=== PATIENT | male | born 1965 | race Caucasian/White ===

== ENCOUNTER 2022-11-19 07:41 | Outpatient (CLI) | payer BC, SELFPAY ==
[2022-11-19 10:54] LABS: Albumin* 4.4 g/dL (3.3-5.0); Chloride* 106 mmol/L (96-114); Potassium* 4.6 mmol/L (3.6-5.1); Sodium* 142 mmol/L (135-149)
[2022-11-19 10:56] LABS: Cholesterol* 216 mg/dL (90-199)
[2022-11-19 10:57] LABS: Alanine Aminotransferase* 30 U/L (4-50); Alkaline Phosphatase* 84 U/L (40-150); Aspartate Amino Transferase* 30 U/L (12-35); Bilirubin Total* 0.5 mg/dL (0.1-1.5); Blood Urea Nitrogen* 7 mg/dL (7-30); Carbon Dioxide* 31 mmol/L (20-32); Creatinine* 0.7 mg/dL (0.5-1.5); Estimated Glomerular Filt Rate 106 ml/min; Total Protein* 7.8 g/dL (6.0-8.3); Triglycerides* 130 mg/dL (40-149)
[2022-11-19 10:58] LABS: Calcium* 9.2 mg/dL (8.4-10.6); HDL Cholesterol* 61 mg/dL (>=40); LDL Cholesterol Calculated 129 mg/dL (<100)
[2022-11-19 11:28] LABS: PSA Screen* 0.45 ng/mL (0.10-4.00)
[2022-11-19 11:48] LABS: Glucose* 100 mg/dL (60-115)
== END 2022-11-19 07:42 | disposition home or self-care (01) ==
PROVIDERS: PCP Family Medicine; Visit Provider Family Medicine
DX: Z00.00 Encounter for general adult medical examination without abnormal findings (principal); E78.5 Hyperlipidemia, unspecified; R73.01 Impaired fasting glucose; E66.3 Overweight; R03.0 Elevated blood-pressure reading, without diagnosis of hypertension; Z13.1 Encounter for screening for diabetes mellitus; Z12.5 Encounter for screening for malignant neoplasm of prostate; Z13.6 Encounter for screening for cardiovascular disorders
CPT/HCPCS: 80053; 80061; 84153

== ENCOUNTER 2022-12-23 09:19 | Outpatient (CLI) | payer BC, SELFPAY | END 2022-12-23 09:20 | disposition home or self-care (01) | LOC: OP CLINIC 09:20 | PROVIDERS: PCP Family Medicine; Visit Provider Surgery | DX: Z12.11 Encounter for screening for malignant neoplasm of colon (principal); K62.1 Rectal polyp; K57.30 Diverticulosis of large intestine without perforation or abscess without bleeding | CPT/HCPCS: 45385; 88305; 99153; J2250; J3010 ==

== ENCOUNTER 2024-01-26 07:25 | Outpatient (CLI) | payer MEDICAID, SELFPAY | END 2024-01-26 07:26 | disposition home or self-care (01) | LOC: NFLDREF 01-28 07:21 | PROVIDERS: PCP Family Medicine; Referring Provider Family Medicine; Visit Provider Family Medicine | DX: E78.5 Hyperlipidemia, unspecified (principal); Z12.5 Encounter for screening for malignant neoplasm of prostate | CPT/HCPCS: 80053; 80061; G0103 ==

== ENCOUNTER 2025-03-18 18:08 | Emergency (ER) | payer OTHER, SELFPAY ==
--- OUTSIDE RECORDS SUMMARY | 2025-03-18 18:10 | XMS_ITS | Clinical Summary ---
Author Organization [facility] Address [address] [place] [id number] Care Team Providers Care Sales Team Member Name Role Phone Pcp, No Primary Care Provider Unavailabl e Allergies Active Allergy Reactions Criticality Noted Date Comments Cephalexin Rash 06/20/2010 Was taking Bactrim at the same time so actual drug allergy is uncertain Penicillins Rash 01/18/2012 Sulfamethoxazole-Trimethopr im Rash 06/20/2010 Was taking Keflex at the same time so actual allergy is uncertain. Medications No known medications Active Problems Problem Noted Date Diagnosed Date Tobacco dependence 10/11/2014 GERD (gastroesophageal reflux disease) 0 Immunizations Immunization Administration Dates Next Due COVID-19 vaccine ([employer] 30mcg/0.3mL) WILLIAM Monroe 04/23/2021,04/02/2021 Family History Medical History Relation Name Comments Hypertension Mother Other Mother gerd Relation Name Status Comments Mother Social History Tobacco Use Types Packs/Day Years Used Date Smoking Tobacco: Former Cigarettes 1 24 1 12/11/1989 - 10/10/2014 Smokeless Tobacco: Never Tobacco Cessation:Counseling Given: Yes Alcohol Use Standard Drinks/Week Comments Yes 0 (1 standard drink = 0.6 oz pur e alcohol) moderate Social Connections Answer Date Recorded Frequency of Communication with Friends and Fami ly Not on file 10/24/2021 Financial Resource Strain Answer Date R ecorded Difficulty of Paying Living Expenses Not on file 10/24/2021 Difficulty of Paying Living Expenses Not on file 10/24/2021 Sex and Gender Information Value Date Recorded Sex Assigned at Not on file Legal Sex Male 6:21 AM [employer] Gender Identity Not on file Sexual Orientation Not on file Occupation Industry Job Start Date Job End Date Sales Not on file Not on file Not on file Obstetrics History Last Filed Vital Signs Vital Sign Reading Time Taken Comments Blood Pressure 133/69 09/27/2021 8:59 AM [employer]ING TECH[employer]ICIAN Pulse 109 09/27/2021 8:59 AM [employer] TECHNICIAN Temperature 36.4 C (97.5 F) 07/27/2018 1:31 PM CDT Respiratory Rate 20 07/17/2009 2:26 PM CDT Oxygen Saturation 97% 09/27/2021 8:59 AM [employer] TECHNICIAN Inhaled Oxygen Concentration - - Weight 79.2 kg (174 lb 9.6 oz) 09/27/2021 8:59 A M [employer]CH[employer]ICIAN Height 172.7 cm (5' 8) 09/27/2021 8:59 AM [employer] TECH[employer]ICIAN Body Mass Index 26.55 09/27/2021 8:59 AM [employer] TECHNICIAN Plan of Treatment Health Maintenance Due Date Last Done Comments Tdap 1974 Depression screening for age 12+ 1975 HIV for age 15-65 1978 Hepatitis C screening for ag e 18-79 1981 Tetanus booster 1983 Colonoscopy through age 75 2008 Lipids for age 45-75 2008 Pneumococcal series for age 50+ (1 of 1 - PCV) 2013 Zoster (shingles) series for age 50+ (1 of 2) 2013 BMI (ht and wt on same day) for age 18+ 09/27/2022 09/27/2021, 10/21/2016 COVID-19 vaccine series ( season) 2024 04/23/2021, 04/02/2021 Influenza Vaccine (Season Ended) 2025 RSV vaccine for adults or (1 - 1-dose 75+ series) 2038 Hepatitis B series for 19+ Aged Out N o longer eligible based on patient's age to complete this topic Insurance [facility] Care Teams Sales Team Member Relationship Specialty Start Date End Date Pcp, No . PCP - General 03/19/21
--- NOTE | 2025-03-18 18:17 | ED_ITS ---
HPI - General Adult General Date Seen: 03/18/25 Chief complaint: Alcohol/Intoxication Stated complaint: ETOH Time Seen by Provider: 03/18/25 18:11 History of Present Illness HPI narrative: Patient is a 60-year-old male brought in by his , it sounds like she was concerned about him because he was falling asleep at the bar, she reported that he had had 3 man happens but he says he has had much more than that. He is significantly intoxicated but currently reporting that he wants help to quit drinking. He denies prior treatment for alcohol. Denies other substances. Denies significant medical history. According to our database, medical history includes high cholesterol, gastroesophageal reflux and impaired fasting glucose. Only medications listed are multivitamin. Related Data Home Medications ?Medication ?Instructions ?Recorded ?Confirmed multivitamin 1 tab PO QDAY 11/19/2201/26 Allergies Allergy/AdvReac Type Severity Reaction Status Date / Time Penicillins Allergy Unknown Verified 01/27/24 07:32 Review of Systems Status of ROS: Reports: unobtainable due to medical condition PFSH PFS Social History What is your current living situation?: I presently have a place to live Problems where you live: no known problems In the past 12 months, utilities in danger of being shut off: no In past 12 months, lack of transportation kept you from medical appts, meetings, work, or getting things needed for daily living: no In the past 12 mos, have been you worried that your food would run out before you had money to buy more?: never true In the past 12 mos, the food you bought just didn't last and you didn't have money to buy more?: never true Smoking Status: Former smoker Do you use any of these nicotine containing products: None Second hand tobacco smoke exposure: No How often do you have a drink containing alcohol: 4 or more times a week How many standard drinks containing alcohol do you have on a typical day: 10 or more How often do you have six or more drinks on one occasion: Daily or almost daily AUDIT-C Alcohol total score: 12 Non-prescribed substance use: denies use How often does anyone, including family, friends and others, physically hurt you : never How often does anyone, including family, friends and others, insult or talk down to you: never How often does anyone, including family, friends and others, threaten you with harm: never How often does anyone, including family, friends and others, scream or curse at you: never Exam Narrative: Exam Narrative: Vital signs as noted above. In general, an alert, intoxicated but cooperative med age male. Head: Normocephalic, atraumatic. Eyes: Pupils are equal reactive. Extraocular movements are full. Conjunctivae are slightly injected. ENT: Mucous membranes are moist. Throat is normal. Neck: Supple without lymphadenopathy. Heart: Regular rate and rhythm. No murmur or rub. Lungs: Clear bilaterally. No increased work of breathing, crackles or wheezes. Abdomen: Soft and nontender. No organomegaly. Extremities: Well perfused. No edema. No calf tenderness. Pulses intact. Neurologic: He is alert, speech is somewhat slurred, he does respond to questions, follows commands. Affect: Tearful. Skin: Warm and dry. Well perfused. Const: Vital Signs, click to edit/add: Vital Signs - 24 hr 03/18/25 18:28 03/18/25 18:35 Temperature 96.9 F L Pulse Rate [Pulse Oximeter] 93 Respiratory Rate 16 Blood Pressure [Ri ght Upper Arm] 134/90 H Pulse Oximetry 86 L 92 Oxygen Delivery Me thod Room Air Nasal Cannula Oxygen Flow Rate 2 Course Course ED Course: He is alert and breathing without difficulty but O2 sats are hovering in the upper 80s, will keep him on a little oxygen here for the time being. An IV was established, he was given a L of normal saline and thiamine 100 mg IV. I was able to have a conversation with his . She says that she brought him in because they were out at [employer], she had a couple of beers, he had a couple of manhattans, she left briefly to go see if her cellphone was ready at the store, when she came back he seemed significantly intoxicated, more so than she is used to. He was kind of slumped over almost passed out. She was able to get him to the car but then brought him here for evaluation because she was worried about how drunk he was after only 3 drinks. He says he had way more than that. She does note that he drinks daily, she feels he has had a long history of alcohol overuse, she does decline transfer tonight to detox, feels that they can discuss treatment tomorrow. She says that he has never had problems with alcohol withdrawal. She also denies any possibility of trauma. Labs are most notable for blood alcohol of 0.39. Otherwise unremarkable. I did an EKG and a chest x-ray because of the hypoxia on his arrival knees are unremarkable, chest x-ray is negative by my review, Radiology report likewise negative. EKG showed a normal sinus rhythm ventricular rate of [address] segment changes. With time he was able to come off oxygen and is satting 96% on room air. He is intoxicated but conversant, fixated primarily on his blood alcohol level. He is not really able to participate in any planning tonight. I again offered detox, his declines and would like to take him home. He is able to stand and walk a little bit and feels she will be able to get him home. Resources provided for treatment options. Vital Signs Vital signs: Initial Vital Signs Temperature 96.9 F L 03/18/25 18:28 Temperature Source Temporal Artery Scan 03/18/25 18:28 Pulse Rate 93 03/18/25 18:28 Pulse Rhythm Regular 03/18/25 18:28 Respiratory Rate 16 03/18/25 18:28 Blood Pressure 134/90 H 03/18/25 18:28 Blood Pressure Mean 104 03/18/25 18:28 Blood Pressure Position Supine 03/18/25 18:28 Pulse Oximetry 86 L 03/18/25 18:28 Oxygen Delivery Method Room Air 03/18/25 18:28 Vital Signs Temperature 96.9 F L 03/18/25 18:28 Pulse Rate 93 03/18/25 18:28 Respiratory Rate 16 03/18/25 18:28 Blood Pressure 134/90 H 03/18/25 18:28 Pulse Oximetry 86 L 03/18/25 18:28 Oxygen Delivery Method Room Air 03/18/25 18:28 Temperature 96.9 F L 03/18/25 18:28 Pulse Rate 93 03/18/25 18:28 Respiratory Rate 16 03/18/25 18:28 Blood Pressure 134/90 H 03/18/25 18:28 Pulse Oximetry 92 03/18/25 18:35 Oxygen Delivery Method Nasal Cannula 03/18/25 18:35 Oxygen Flow Rate 2 05/23/25 18:35 Medications Administered Medications: Discontinued Medications Generic Name Dose Route Start Last Admin Trade Name Freq PRN Reason Stop Dose Admin Sodium Chloride 1,000 mls @ 1,000 mls/hr 03/18/25 18:30 03/18/25 19:53 0.9 % Sodium Chloride 1000 Ml IV 03/18/25 19:29 Infused .Q1H LALA Infusion Thiamine HCl 100 mg/ Sodium 101 mls @ 101 mls/hr 03/18/25 18:25 03/18/25 19:53 Chloride IVPB 03/18/25 18:26 Infused ONCE ONE Infusion Medical Decision Making Lab Data Labs: Lab Results 03/18/25 Range/Units 18:35 WBC 6.39 (4.50-11.00) K/uL RBC 4.62 (4.30-5.90) m/uL Hgb 14.5 (13.5-17.5) gm/dL Hct 43.4 (37.0-53.0) % MCV 94 (80-100) fL MCH 31 (26-34) pg MCHC 33 (32-36) gm/dL RDW Coeff of [place] 12.1 (11.5-15.5) % Plt Count 236 (140-440) K/uL Neut % (Auto) 58.0 (42.0-72.0) % Lymph % (Auto) 30.0 (20-44) % [place] % (Auto) 9.7 (0.0-11.0) % Eos % (Auto) 1.6 (0.0-7.0) % Baso % (Auto) 0.5 (0.0-3.0) % Neut # (Auto) 3.71 (1.7-7.0) K/uL Lymph # (Auto) 1.92 (0.90-2.90) K/uL [place] # (Auto) 0.60 (0.00-0.90) K/UL Eos # (Auto) 0.10 (0.00-0.50) K/uL Baso # (Auto) 0.03 (0.00-0.30) K/uL Abs Immat Gran (auto) 0.01 (0.00-0.30) K/uL Imm/Tot Granulo (auto) 0.2 % VBG pH 7.400 (7.32-7.43) VBG pCO2 44 (40-50) mmHG VBG pO2 90.2 H (25-47) mmHG VBG HCO3 27 (21-28) mmol/L Sodium 138 (135-149) mmol/L Potassium 4.1 (3.6-5.1) mmol/L Chloride 102 (96-114) mmol/L Carbon Dioxide 25 (20-32) mmol/L Anion Gap 11 (7-15) mEq/L BUN 7 (7-30) mg/dL Creatinine 0.8 (0.5-1.5) mg/dL Estimated Creat Clear 74.10 Estimated GFR 100 ml/min Glucose 111 (60-115) mg/dL Calcium 8.7 (8.4-10.6) mg/dL Total Bilirubin 0.5 (0.1-1.5) mg/dL Direct Bilirubin 0.4 (0.0-0.5) mg/dL AST 52 H (12-35) U/L ALT 31 (4-50) U/L Alkaline Phosphatase 63 (40-150) U/L Total Protein 8.1 (6.0-8.3) g/dL Albumin 4.5 (3.3-5.0) g/dL Lipase 189 (23-300) U/L Acetaminophen < 10.0 (10.0-30.0) ug/mL Ethyl Alcohol 0.39 H* (0.01-0.03) % Discharge Plan Discharge Clinical Impression: Alcohol dependence Patient Disposition: Home w/ Parent or Adult Condition: Stable Instructions: Alcohol Use Disorder (ED) Additional Instructions: Your blood alcohol tonight is 0.39, suggesting significant alcohol dependence. I would recommend treatment for alcohol abuse. Resources provided. Prescriptions: No Action multivitamin Tablet 1 tab PO QDAY Follow Up/Referrals: Geovani Khan MD [Primary Care Provider, Family Practice] Stand Alone Forms: MD.Voiceth Info Instructions
--- NOTE | 2025-03-18 18:20 | CRLHL7_ITS ---
For Patients: As a result of the Century Cures Act, medical imaging exams and procedure reports are released immediately into your electronic medical record. You may view this report before your referring provider. If you have questions, please contact your health care provider. INDICATION: Hypoxia TECHNIQUE: Chest radiograph 1 view COMPARISON: None FINDINGS: The sensitivity and specificity of the exam are moderately limited by the patient`s body habitus. Mediastinum: The mediastinum is normal in appearance. The heart silhouette is normal in size and morphology. Lung: Both lungs are unremarkable in appearance with small lung volumes. No sign of pleural effusion seen. No pneumothorax is identified. Bone and Soft tissue: Unremarkable for age. IMPRESSION: 1. No acute cardiopulmonary disease is seen. Dictated by: Gold Cedillo MD @ 03/18/2025 18:49:46 (Electronically Signed)
[2025-03-18 18:28] VITALS: BP 134/90; PULSE 93; RESP 16; TEMP 36.1; O2SAT 86
[2025-03-18 18:34] VITALS: BMI 25.1
[2025-03-18 18:35] VITALS: O2SAT 92
[2025-03-18 18:42] LABS: HCO3 VBG 27 mmol/L (21-28); PCO2 VBG 44 mmHG (40-50); PO2 VBG 90.2 mmHG (25-47)
[2025-03-18 18:45] LABS: Basophils Absolute Auto 0.03 K/uL (0.00-0.30); Basophils Percent Auto 0.5 % (0.0-3.0); Eosinophils Percent Auto 1.6 % (0.0-7.0); Hematocrit 43.4 % (37.0-53.0); Hemoglobin* 14.5 gm/dL (13.5-17.5); Immature Granulocytes Abs Auto 0.01 K/uL (0.00-0.30); Immature Granulocytes Pct Auto 0.2 %; Lymphocytes Absolute Auto 1.92 K/uL (0.90-2.90); Mean Corpuscular HGB Conc 33 gm/dL (32-36); Mean Corpuscular Hemoglobin 31 pg (26-34); Mean Corpuscular Volume 94 fL (80-100); Monocytes Percent Auto 9.7 % (0.0-11.0); Neutrophils Absolute Auto 3.71 K/uL (1.7-7.0); Platelet Count* 236 K/uL (140-440); RDW Coefficient of Variation % 12.1 % (11.5-15.5); Red Blood Count 4.62 m/uL (4.30-5.90); Slide Review Reflex No; White Blood Count* 6.39 K/uL (4.50-11.00)
[2025-03-18] MEDS: 0.9 % SODIUM CHLORIDE 1000 ml 1,000 ML IV (18:46)
[2025-03-18 18:57] LABS: Albumin* 4.5 g/dL (3.3-5.0)
[2025-03-18 18:58] LABS: Chloride* 102 mmol/L (96-114); Potassium* 4.1 mmol/L (3.6-5.1); Sodium* 138 mmol/L (135-149)
[2025-03-18] MEDS: THIAMINE IVPB (18:59)
[2025-03-18] MEDS: SODIUM CHLORIDE 0.9% IVPB (18:59)
[2025-03-18 19:00] LABS: Alanine Aminotransferase* 31 U/L (4-50); Anion Gap 11 mEq/L (7-15); Aspartate Amino Transferase* 52 U/L (12-35); Blood Urea Nitrogen* 7 mg/dL (7-30); Carbon Dioxide* 25 mmol/L (20-32); Creatinine* 0.8 mg/dL (0.5-1.5); Estimated Glomerular Filt Rate 100 ml/min
[2025-03-18 19:01] LABS: Alkaline Phosphatase* 63 U/L (40-150); Bilirubin Direct* 0.4 mg/dL (0.0-0.5); Bilirubin Total* 0.5 mg/dL (0.1-1.5); Calcium* 8.7 mg/dL (8.4-10.6); Glucose* 111 mg/dL (60-115); Lipase* 189 U/L (23-300); Total Protein* 8.1 g/dL (6.0-8.3)
[2025-03-18 19:05] LABS: Acetaminophen* < 10.0 ug/mL (10.0-30.0)
[2025-03-18 20:02] LABS: Ethanol* 0.39 % (0.01-0.03)
[2025-03-18 20:55] VITALS: BP 137/74; PULSE 78; RESP 18; TEMP 36.7
== END 2025-03-18 21:00 | disposition home or self-care (01) ==
PROVIDERS: Emergency Provider Emergency Medicine; PCP Family Medicine
DX: F10.229 Alcohol dependence with intoxication, unspecified (principal)
CPT/HCPCS: 36415; 71045; 80053; 80076; 80143; 82077; 82803; 83690; 85025; 93005; 96365; 99284; J3411; J7030